=== PATIENT | male | born 1965 | race Caucasian/White ===

== ENCOUNTER 2024-11-07 09:14 | Emergency (ER) | payer MEDICAID ==
[~2024-11-07] VITALS: Ht 180.3 cm; Wt 63.3 kg
--- NOTE | 2024-11-07 09:22 | ED.PDOC ---
Psychiatric HPI Comments 59 y.o male with PMHx of DM, previous suicide attempts, and auditory h allucinations presents to the ED via EMS for mental health and hyperglycemia. Patient reports checking his BG at home which read 475 with a repeat check taken by EMS at 460. Patient states feeling overwhelmed and "wants to jump out of his skin". Patient mentions being compliant with medications but states they are not helping him mentally nor to manage his BG. He denies any suicidal ideation at this time nor hallucinations of any sort but is anxious on presentation. He denies any SOB, chest pain, fever, chills, nausea, vomiting. Time Seen by MD: 09:10 Reviewed Notes: Nurses Notes, [employer] Act Specialist Notes, Medications, Allergies Information Source: Patient Mode of Arrival: EMS Severity: Able to Care for Self Severity of Pain: None Severity of Mental Status: Moderate Severity of Symptoms: Moderate Timing: Hours Duration: Since onset Prehospital treatment: Jolene (460) Presents with: Unclear Thinking Ingestion: None Circumstance: Medical Clearance Current substance abuse: None Stressors: None History of: Depression, Suicidal Attempt, Medication Compliance Associated signs and symptoms: Anxiety, Agitation Past Medical History PAST MEDICAL HISTORY: Anxiety, Depression, DM Past Medical History (Other): SI attempt Surgical History: Denies all surgeries Family History Family History: Reviewed,noncontributory to illness Social History Smoker: Non-Smoker Alcohol: Denies ETOH Use Drugs: Denies Drug Use Lives In: Home Constitutional: denies: chills, diaphoresis, fatigue, fever, malaise, sweats, weakness, others EENTM: denies: blurred vision, double vision, ear bleeding, ear discharge, ear drainage, ear pain, ear ringing, eye pain, eye redness, hearing loss, mouth pain, mouth swelling, nasal discharge, nose bleeding, nose congestion, nose pain, photophobia, tearing, throat pain, throat swelling, voice changes, others Respiratory: denies: cough, hemoptysis, orthopnea, SOB at rest, shortness of breath, SOB with excertion, stridor, wheezing, others Cardiovascular: denies: chest pain, dizzy spells, diaphoresis, Dyspnea on exertion, edema, irregular heart beat, left arm pain, lightheadedness, palpitations, PND, syncope, others Gastrointestinal: denies: abdomen distended, abdominal pain, blood streaked bowels, constipated, diarrhea, dysphagia, difficulty swallowing, hematemesis, melena, nausea, poor appetite, poor fluid intake, rectal bleeding, rectal pain, vomiting, others Genitourinary: denies: burning, dysuria, flank pain, frequency, hematuria, incontinence, penile discharge, penile sore, pain, testicle pain, testicle swelling, urgency, others Neurological: denies: dizziness, fainting, headache, left sided numbness, left sided weakness, numbness, paresthesia, pre-existing deficit, right sided numbness, right sided weakness, seizure, speech problems, tingling, tremors, weakness, others Musculoskeletal: denies: back pain, gout, joint pain, joint swelling, muscle pain, muscle stiffness, neck pain, others Integumetry: denies: bruises, change in color, change in hair/nails, dryness, laceration, lesions, lumps, rash, wounds, others Allergic/Immunocompromised: denies: Difficulty Healing, Frequent Infections, Hives, Itching, others Hematologic/Lymphatic: denies: anemia, blood clots, easy bleeding, easy bruising, swollen glands, others Endocrine: denies: excessive hunger, excessive sweating, excessive thirst, excessive urination, flushing, intolerance to cold, intolerance to heat, unexplained weight gain, unexplained weight loss, others Psychiatric: reports: anxiety, suicidal; denies: bipolar disorder, depression, hopeless, panic disorder, schizophrenia, sleepless, others All Other Systems: Reviewed and Negative Physical Exam General Appearance: Moderate Distress HEENT: Normal ENT Inspection, Pharynx Normal, TMs Normal Neck: Full Range of Motion, Non-Tender, Normal, Normal Inspection Respiratory: Chest Non-Tender, Lungs Clear, No Accessory Muscle Use, No Respiratory Distress, Normal Breath Sounds Cardiovascular: No Edema, No JVD, No Murmur, No Gallop, Normal Peripheral Pulses, Regular Rate/Rhythm Breast Exam: Deferred Gastrointestinal: No Organomegaly, Non Tender, No Pulsatile Mass, Normal Bowel Sounds, Soft Genitalia: Deferred Pelvic: Deferred Rectal: Deferred Extremities: No calf tenderness, Normal capillary refill, Normal inspection, Normal range of motion, Non-tender, No pedal edema Musculoskeletal : Apperance: Normal Neurologic: Alert, waist presser II-XII nml as Tested, No Motor Deficits, Normal Affect, Normal Mood, No Sensory Deficits Cerebellar Function: Normal Reflexes: Normal Skin: Dry, Normal Color, Warm Peripheral Pulses: 3+ Radial (R), 3+ Radial (L) Lymphatic: No Adenopathy Was a procedure done? Was a procedure done?: No Psych Differential Dx Psych. Differential Dx: Anxiety X-Ray, Labs, Meds, VS Vital Signs Date Time Temp Pulse Resp B/P (MAP) Pulse Ox O2 Delivery O2 Flow Rate FiO2 11/07/24 09:19 97.6 92 18 106/72 94 97.6 Patient alert. Blood sugar elevated. Vitals stable. Answering questions. Has suicidal ideation. Establish intravenous access. Was given fluids. He was given insulin. Medically cleared. Psychiatric evaluation. Time of 1ST Reevaluation: 09:17 Reevaluation 1ST: Unchanged Patient Education/Counseling: Diagnosis, Treatment, Prognosis Family Education/Counseling: No Family Present Departure 1 Departure Time of Disposition: 09:30 Impression: Primary Impression: Suicidal ideation Additional Impression: Hyperglycemia Disposition: 30 STILL A PATIENT Condition: Good Critical Care Note Critical Care Time?: No Stability Stability form required: No I personally scribed for WILDA HOOVER MD ([email or web address]) on 11/07/24 at 09:22. Electronically submitted by Melina Saldana ([facility]). WILDA HOOVER MD Nov 07, 2024 09:22
[2024-11-07] MEDS: SODIUM CHLORIDE 0.9% 1,000 ML IV ONE ×2 (09:42→10:46)
[2024-11-07] MEDS: InsuLIN REG 1unit/0.01ml Soln (100units/ml) IV ONE (09:43)
[2024-11-07 09:49] LABS: Urine Protein, UAD Negative (Negative)
[2024-11-07 10:04] LABS: Anion Gap 4 (5-15); Carbon Dioxide 28 mmol/L (20-31)
[2024-11-07 10:12] LABS: Chloride 98 mmol/L (98-107); Potassium 4.4 mmol/L (3.5-5.1); Sodium 130 mmol/L (136-145)
[2024-11-07 10:17] LABS: BUN/Creatinine Ratio 9.0 (10.0-20.0); Blood Urea Nitrogen 10 mg/dL (9-23); Glucose 562 mg/dL (74-106)
[2024-11-07 10:18] LABS: Calcium 9.3 mg/dL (8.7-10.4)
[2024-11-07 10:24] VITALS: PULSE 75; RESP 20; O2SAT 97
[2024-11-07 10:59] LABS: Amphetamine Screen, Urine Neg (NEGATIVE)
[2024-11-07 11:04] LABS: Barbiturate Scree,Urine Neg (NEGATIVE); Benzodiazephine Screen, Urine Neg (NEGATIVE); Cannabinoid Screen, Urine Neg (NEGATIVE); Cocaine Screen, Urine Neg (NEGATIVE); Opiate Scree,Urine Neg (NEGATIVE); Phencyclidine Screen, Urine Neg (NEGATIVE)
[2024-11-07 11:30] VITALS: PULSE 68; RESP 16; O2SAT 98
--- NOTE | 2024-11-07 13:57 | DVHINCON2 ---
Date of Service if different f: Nov 07, 2024 Time of Service: 13:56 Consultation (CARIBOU) Labs Laboratory Tests Test 11/07/24 09:37 11/07/24 09:38 11/07/24 11:40 Sodium Level 130 mmol/L (136-145) Potassium Level 4.4 mmol/L (3.5-5.1) Chloride Level 98 mmol/L (98-107) Carbon Dioxide Level 28 mmol/L (20-31) Anion Gap 4 (5-15) Blood Urea Nitrogen 10 mg/dL (9-23) Creatinine 1.11 mg/dL (0.700-1.30) Glomerular Filtration Rate Calc 77 mL/min (>90) BUN/Creatinine Ratio 9.0 (10.0-20.0) Serum Glucose 562 mg/dL (74-106) Calcium Level 9.3 mg/dL (8.7-10.4) Urine Color Light-yellow (Yellow) Urine Clarity Clear (Clear) Urine pH 6.0 (5.0-9.0) Urine Specific [place] 1.040 (1.001-1.035) Urine Protein Negative (Negative) Urine Ketones Trace (Negative) Urine Blood Negative /uL (Negative) Urine Nitrite Negative (Negative) Urine Bilirubin Negative (Negative) Urine Urobilinogen Normal mg/dL (Negative) Urine Leukocyte Esterase Negative /uL (Negative) Urine RBC None seen /hpf (0 - 3) Urine Microscopic WBC /HPF (0-3) Urine Squamous Epithelial Cells None seen /hpf (<5) Urine Bacteria None seen /hpf (None Seen) Urine Glucose 4+ mg/dL (Normal) Urine Opiates Screen Neg (NEGATIVE) Urine Fentanyl Screen Neg (NEGATIVE) Urine Barbiturates Screen Neg (NEGATIVE) Urine Phencyclidine Screen Neg (NEGATIVE) Urine Amphetamines Screen Neg (NEGATIVE) Urine Benzodiazepines Screen Neg (NEGATIVE) Urine Cocaine Screen Neg (NEGATIVE) Urine Cannabinoids Screen Neg (NEGATIVE) Bedside Glucose 279 mg/dl (70-106) Vitals Vital Signs Date Time Temp Pulse Resp B/P (MAP) Pulse Ox O2 Delivery O2 Flow Rate FiO2 11/07/24 11:30 68 16 98 Room Air* 0 21 11/07/24 10:30 100/68 (79) 11/07/24 09:19 97.6 97.6 PSYCHIATRY CONSULTATION INITIAL EVALUATION REASON FOR CONSULT: SI HPI: 59yo M, history of Schizoaffecitve d/o, in outpatient care and on medications, who expressed SI upon initial presentation. On interview, pt says he was feeling suicidal at home, he could not sit in his own skin. He thinks he elevated blood sugar contributed. This is usual when his blood sugar is off. Pt feels better, says I can sit with myself, I can stay with myself. Pt denies current SI. He denies access to firearms. His mood is described as sad, but said he has been sad for years, and it is currently the same, at baseline. Pt denies any desire nor intention to harm himself. He is concerned about his blood sugar. Says he takes his medication at home, but it still gets pretty high. He worries it may just go back up tomorrow. Otherwise, pt contracts for safety upon discharge to home. PSYCHIATRIC HISTORY: DIAGNOSIS: Schizoaffective Disorder. ADMISSIONS: Reports prior admissions 2019 while in [place], and this year in [place]. MEDICATION TRIALS: Currently on meds but cannot recall the names. OUTPATIENT CARE: In care with [facility]. THERAPY: In therapy through [facility]. SI/SELF-INJURY/SUICIDE ATTEMPT: Reports h/o suicide attempt 6 years ago, pt was running in traffic, says he changed his mind. No access to firearms. SUBSTANCE USE: Denies MENTAL STATUS EXAMINATION: The patient is a 59-year-old man who appears his stated age, adequately groomed. He is calm and cooperative throughout the interview, maintaining fair eye contact. Speech is normal in rate, tone, and volume. Mood is described as sad, consistent with his longstanding baseline; affect is blunted and constricted but stable. Thought processes are linear and goal-directed. Thought content is notable for previously reported suicidal ideation earlier today but now denies desire, intent, or plan to harm himself; no homicidal ideation elicited. He denies hallucinations, delusions, or other perceptual disturbances. Cognition is grossly intact with full orientation. Insight is fair as he connects his mood worsening to hyperglycemia, and judgment is fair, evidenced by his willingness to contract for safety and remain in outpatient care. DIFFERENTIAL DIAGNOSIS: F41.9 Anxiety Disorder, unspecified (subjective distress with hyperglycemia episodes) F25.9 Schizoaffective Disorder, unspecified E11.65 Type 2 Diabetes Mellitus with hyperglycemia ASSESSMENT: This is a 59-year-old man with schizoaffective disorder, engaged in outpatient psychiatric care, who presented with transient suicidal ideation at home attributed to uncontrolled blood glucose. On interview, he denies current suicidal ideation, intent, or plan, contracts for safety, and reports he feels back to his baseline. He denies access to firearms, reports ongoing outpatient therapy and medication adherence, and expresses concern about managing his blood sugar. His presentation is consistent with chronic mood symptoms exacerbated by medical factors rather than acute psychiatric decompensation. He does not meet criteria for a 5150 hold or involuntary psychiatric admission at this time. Safety Assessment Suicidal ideation: Transient; now denied. No intent or plan. Homicidal ideation: Denied. Psychosis: No acute psychotic symptoms elicited. Access to means: No firearms. Risk factors: Chronic psychiatric illness, history of suicide attempt. Protective factors: Engaged in outpatient care and therapy, contracts for safety, help-seeking behavior, insight into medical triggers. Current risk level: Low imminent suicide risk; moderate chronic risk due to history. RECOMMENDATIONS: 1. Legal: Patient does not meet 5150 criteria.. 2. Disposition: No psychiatric admission indicated. 3. Medications: Continue home regimen 4. Medical considerations: Optimize blood glucose and home diabetes regimen, as hyperglycemia may exacerbate mood symptoms. 5. Other: - Continue outpatient psychiatric and medical follow-up. - Provide crisis hotline information ([id number]) and local mental health urgent care resources. COSME BURROWS MD Nov 07, 2024 13:57
[2024-11-07 19:30] VITALS: BP 106/78; PULSE 71; RESP 14; TEMP 97.7; O2SAT 94
== END 2024-11-07 22:08 | disposition home or self-care (01) ==
LOC: ER 09:14 → EDBD 09:14 → ER 22:08
DX: E11.65 Type 2 diabetes mellitus with hyperglycemia (principal); R45.851 Suicidal ideations; F41.9 Anxiety disorder, unspecified; F32.A Depression, unspecified
CPT/HCPCS: 36415; 80048; 80307; 81001; 82947; 96361; 96374; 99285; J1815; J7030; 82962